=== PATIENT | female | born 1950 | race Caucasian/White ===

== ENCOUNTER 2023-12-30 18:30 | Emergency (ER) | payer MEDICARE, MEDICAID ==
[~2023-12-30] VITALS: Ht 157.5 cm; Wt 56.0 kg
[2023-12-30 19:29] VITALS: TEMP 98.6; O2SAT 100
[2023-12-30] MEDS ORDERED: SULF1TAB48 MT (21:36)
[2023-12-30 21:57] VITALS: BP 135/88; PULSE 78; RESP 20
== END 2023-12-30 22:00 | disposition home or self-care (01) ==
LOC: ER 18:30
DX: S01.00XA Unspecified open wound of scalp, initial encounter (principal); Z98.890 Other specified postprocedural states; V98.8XXA Other specified transport accidents, initial encounter; Y93.89 Activity, other specified; Y92.89 Other specified places as the place of occurrence of the external cause; Y99.8 Other external cause status
CPT/HCPCS: 99283